=== PATIENT | male | born 1975 | race Two or more races ===

== ENCOUNTER 2018-07-02 08:29 | Emergency (ER) | payer SELFPAY ==
[~2018-07-02] VITALS: Ht 182.9 cm; Wt 120.5 kg
[2018-07-02 08:33] VITALS: Ht 182.9 cm; Wt 120.5 kg
[2018-07-02] MEDS ORDERED: NAPROSYN500 MG PO (09:35)
[2018-07-02 09:51] VITALS: BP 148/88
== END 2018-07-02 09:52 | disposition home or self-care (01) ==
LOC: D.ER 08:29
DX: M25.521 Pain in right elbow (principal); M77.9 Enthesopathy, unspecified

== ENCOUNTER 2018-12-12 00:15 | Emergency (ER) | payer SELFPAY ==
[~2018-12-12] VITALS: Ht 182.9 cm; Wt 118.2 kg
[~2018-12-12 00:15] MED LIST: NAPROSYN500 MG PO
[2018-12-12 00:16] VITALS: Ht 182.9 cm; Wt 118.2 kg
[2018-12-12] MEDS ORDERED: HYDROCODON-ACE1 EA10 PO (01:15)
[2018-12-12 01:45] VITALS: BP 145/78
== END 2018-12-12 01:46 | disposition home or self-care (01) ==
LOC: D.ER 00:15
DX: M77.11 Lateral epicondylitis, right elbow (principal)

== ENCOUNTER 2019-01-01 20:38 | Emergency (ER) | payer SELFPAY ==
[~2019-01-01 20:38] MED LIST changes: +HYDROCODON-ACE1 EA10 PO
[2019-01-01 20:45] VITALS: BMI 35.3
[2019-01-01] MEDS ORDERED: TYLENOL W/CODEI1 TAB PO (21:47)
[2019-01-01] MEDS ORDERED: VOLTAREN75 MG PO (21:47)
[2019-01-01 22:02] VITALS: BP 148/97
== END 2019-01-01 22:02 | disposition home or self-care (01) ==
LOC: D.ER 20:38
DX: S62.306A Unspecified fracture of fifth metacarpal bone, right hand, initial encounter for closed fracture (principal); W18.30XA Fall on same level, unspecified, initial encounter; Y93.89 Activity, other specified; Y92.89 Other specified places as the place of occurrence of the external cause

== ENCOUNTER 2019-02-27 04:21 | Emergency (ER) | payer SELFPAY ==
[~2019-02-27] VITALS: Ht 182.9 cm; Wt 113.4 kg
[~2019-02-27 04:21] MED LIST changes: +TYLENOL W/CODEI1 TAB PO; +VOLTAREN75 MG PO
[2019-02-27 04:25] VITALS: Ht 182.9 cm; Wt 113.4 kg
[2019-02-27 05:39] LABS: BASOPHILS 0.2 % (0-2); EOSINOPHILS 2.7 % (0-7); HEMATOCRIT 41.6 % (42.0-54.0); HEMOGLOBIN 14.4 g/dL (13.5-17.5); LYMPHOCYTES 27.5 % (15-50); MCH 26.6 pg (26.0-34.0); MCHC 34.6 g/dL (31.0-37.0); MCV 76.9 fL (80.0-100.0); MEAN PLATELET VOLUME 9.8 fL (7.4-10.4); MONOCYTES 15.5 % (2-11); NEUTROPHILS 54.1 % (40-80); PLATELET COUNT 292 10x3/uL (130-400); RBC 5.41 10x6/uL (4.20-6.10); RDW 13.5 % (11.5-14.5); WBC 5.1 10x3/uL (4.8-10.8)
[2019-02-27 06:03] LABS: ALBUMIN 3.7 g/dL (3.4-5.0); ALKALINE PHOSPHATASE 86 U/L (46-116); ALT (SGPT) 23 U/L (10-68); BILIRUBIN - TOTAL 0.27 mg/dL (0.2-1.3); CALC OSMOLALITY 274 mosm/kg (275-300); CALCIUM 9.2 mg/dL (8.5-10.1); CARBON DIOXIDE 23.3 mmol/L (21.0-32.0); CHLORIDE - SERUM 103 mmol/L (98-107); CREATININE - SERUM 0.9 mg/dL (0.6-1.3); GLUCOSE 102 mg/dL (74-106); SODIUM 138 mmol/L (136-145); UREA NITROGEN 11 mg/dL (7-18); eGFR NON AFRICAN AMERICAN > 90 mL/min (90-120)
[2019-02-27] MEDS ORDERED: TORADOL10 MG PO (06:20)
[2019-02-27 06:29] VITALS: BP 132/89
== END 2019-02-27 06:31 | disposition home or self-care (01) ==
LOC: D.ER 04:21
PROVIDERS: Family Medicine
DX: F41.9 Anxiety disorder, unspecified (principal); M25.521 Pain in right elbow

== ENCOUNTER 2019-05-22 18:19 | Emergency (ER) | payer SELFPAY ==
[~2019-05-22] VITALS: Ht 182.9 cm; Wt 122.7 kg
[~2019-05-22 18:19] MED LIST changes: +TORADOL10 MG PO
[2019-05-22 18:37] VITALS: Ht 182.9 cm; Wt 122.7 kg
[2019-05-22 19:06] LABS: BASOPHILS 0.2 % (0-2); EOSINOPHILS 1.5 % (0-7); HEMOGLOBIN 13.6 g/dL (13.5-17.5); IMMATURE GRANULOCYTES 0.2 % (0-5); LYMPHOCYTES 33.5 % (15-50); MCH 26.8 pg (26.0-34.0); MCHC 33.2 g/dL (31.0-37.0); MCV 80.7 fL (80.0-100.0); MEAN PLATELET VOLUME 9.9 fL (7.4-10.4); MONOCYTES 8.7 % (2-11); NEUTROPHILS 55.9 % (40-80); PLATELET COUNT 316 10x3/uL (130-400); RBC 5.08 10x6/uL (4.20-6.10); RDW 13.2 % (11.5-14.5); WBC 9.5 10x3/uL (4.8-10.8)
[2019-05-22 19:17] LABS: CALC OSMOLALITY 279 mosm/kg (275-300); CALCIUM 9.1 mg/dL (8.5-10.1); CARBON DIOXIDE 27.3 mmol/L (21.0-32.0); CHLORIDE - SERUM 107 mmol/L (98-107); CREATININE - SERUM 0.9 mg/dL (0.6-1.3); GLUCOSE 77 mg/dL (74-106); POTASSIUM - SERUM 3.9 mmol/L (3.5-5.1); SODIUM 141 mmol/L (136-145); UREA NITROGEN 12 mg/dL (7-18); eGFR NON AFRICAN AMERICAN > 90 mL/min (90-120)
[2019-05-22 19:19] LABS: INR 4.77 (0.85-1.17); PROTIME 43.9 SECONDS (11.6-15.0)
[2019-05-22 19:23] LABS: ALBUMIN 3.9 g/dL (3.4-5.0); ALKALINE PHOSPHATASE 82 U/L (46-116); ALT (SGPT) 34 U/L (10-68); AMYLASE - SERUM 45 U/L (25-115); BILIRUBIN - TOTAL 0.23 mg/dL (0.2-1.3); LIPASE 118 U/L (73-393)
[2019-05-22 19:27] LABS: APTT 30.9 SECONDS (22.8-39.4)
[2019-05-22] MEDS ORDERED: CYCLOBENZAPRINE10 MG PO (20:29)
[2019-05-22] MEDS ORDERED: IBUPROFEN800 MG PO (20:29)
[2019-05-22] MEDS ORDERED: ACETAMINOPHEN500 M1 PO (20:29)
[2019-05-22 21:14] VITALS: BP 151/101
== END 2019-05-22 21:14 | disposition home or self-care (01) ==
LOC: D.ER 18:19
PROVIDERS: Family Medicine
DX: S09.90XA Unspecified injury of head, initial encounter (principal); W22.8XXA Striking against or struck by other objects, initial encounter; S20.219A Contusion of unspecified front wall of thorax, initial encounter; S19.9XXA Unspecified injury of neck, initial encounter

== ENCOUNTER 2019-08-09 01:56 | Emergency (ER) | payer SELFPAY ==
[~2019-08-09] VITALS: Ht 182.9 cm; Wt 122.3 kg
[~2019-08-09 01:56] MED LIST changes: +ACETAMINOPHEN500 M1 PO; +CYCLOBENZAPRINE10 MG PO; +IBUPROFEN800 MG PO
[2019-08-09 02:05] VITALS: Ht 182.9 cm; Wt 122.3 kg
[2019-08-09 02:44] LABS: BASOPHILS 0.2 % (0-2); EOSINOPHILS 1.2 % (0-7); HEMATOCRIT 43.1 % (42.0-54.0); HEMOGLOBIN 14.6 g/dL (13.5-17.5); IMMATURE GRANULOCYTES 0.1 % (0-5); LYMPHOCYTES 29.1 % (15-50); MCH 26.6 pg (26.0-34.0); MCHC 33.9 g/dL (31.0-37.0); MCV 78.6 fL (80.0-100.0); MEAN PLATELET VOLUME 9.9 fL (7.4-10.4); MONOCYTES 7.8 % (2-11); NEUTROPHILS 61.6 % (40-80); RBC 5.48 10x6/uL (4.20-6.10); RDW 12.6 % (11.5-14.5); WBC 10.8 10x3/uL (4.8-10.8)
[2019-08-09 02:50] LABS: PLATELET COUNT 380 10x3/uL (130-400)
[2019-08-09 02:55] LABS: CALC OSMOLALITY 278 mosm/kg (275-300); CALCIUM 9.6 mg/dL (8.5-10.1); CARBON DIOXIDE 28.4 mmol/L (21.0-32.0); CHLORIDE - SERUM 102 mmol/L (98-107); CREATININE - SERUM 1.1 mg/dL (0.6-1.3); GLUCOSE 104 mg/dL (74-106); SODIUM 140 mmol/L (136-145); UREA NITROGEN 12 mg/dL (7-18); eGFR NON AFRICAN AMERICAN 77 mL/min (90-120)
[2019-08-09 03:06] LABS: ALBUMIN 3.7 g/dL (3.4-5.0); ALKALINE PHOSPHATASE 107 U/L (46-116); ALT (SGPT) 23 U/L (10-68); BILIRUBIN - TOTAL 0.24 mg/dL (0.2-1.3); CREATINE KINASE 97 UL (21-232); LIPASE 119 U/L (73-393); PRO BNP 29 pg/mL (0-125); PROTEIN - SERUM 8.4 g/dL (6.4-8.2); TROPONIN-I < 0.017 ng/mL (0.000-0.060)
[2019-08-09 03:56] VITALS: BP 147/105
== END 2019-08-09 03:56 | disposition home or self-care (01) ==
LOC: D.ER 01:56
PROVIDERS: Family Medicine
DX: R07.89 Other chest pain (principal)